=== PATIENT | female | born 1940 | race African-American/Black ===

== ENCOUNTER 2020-01-08 16:42 | Emergency (ER) | payer MEDICARE, OTHER ==
[~2020-01-08] VITALS: Ht 162.6 cm; Wt 62.0 kg
[~2020-01-08 16:42] MED LIST: UNK BP MED; XANAX
[2020-01-08] MEDS ORDERED: ARAV10 PO (16:53)
[2020-01-08] MEDS ORDERED: LOSA50TA3 PO (16:53)
[2020-01-08] MEDS ORDERED: METO-385 PO (16:53)
[2020-01-08] MEDS ORDERED: BACITRACIN ZINC OINT UDPKT TOP ONE (17:15)
[2020-01-08] MEDS ORDERED: TETANUS, DIPHTHERIA, PERTUSSIS VAC/PF 0.5ML (>7YR OLD) IM ONE (17:15)
[2020-01-08] MEDS ORDERED: IBUPROFEN 600MG TABLET PO ONE (17:15)
[2020-01-08] MEDS ORDERED: LIDOCAINE HCL/PF 1% 10 MG/ML 5ML VIAL IJ ONE (18:15)
[2020-01-08 18:43] VITALS: BP 155/92
== END 2020-01-08 18:45 | disposition home or self-care (01) ==
LOC: ER 16:42
DX: M25.551 Pain in right hip (principal); G89.11 Acute pain due to trauma; S60.511A Abrasion of right hand, initial encounter; I10 Essential (primary) hypertension; W01.0XXA Fall on same level from slipping, tripping and stumbling without subsequent striking against object, initial encounter; Y93.01 Activity, walking, marching and hiking; Y92.480 Sidewalk as the place of occurrence of the external cause; Z23 Encounter for immunization
CPT/HCPCS: 73502; 90471; 90715; 99283; J3490

== ENCOUNTER 2022-01-16 09:11 | Emergency (ER) | payer OTHER ==
[~2022-01-16] VITALS: Ht 167.6 cm; Wt 61.0 kg
[~2022-01-16 09:11] MED LIST changes: +ARAV10 PO; +LOSA50TA3 PO; +METO-385 PO; -UNK BP MED
[2022-01-16] MEDS ORDERED: KETOROLAC 60MG/2ML VIAL IM ONE (10:00)
[2022-01-16 10:56] LABS: BASOPHILS % 0.9 % (0.0-2.0); EOSINOPHILS % 1.8 % (0.0-5.0); HEMATOCRIT. 36.7 % (36.0-48.0); HEMOGLOBIN. 11.8 g/dL (12.0-16.0); LYMPHOCYTES % 20.8 % (20.0-50.0); MEAN CORPUSCULAR HEMOGLOBIN 23.4 pg (28.0-32.0); MEAN CORPUSCULAR VOLUME 73.1 fL (81.0-99.0); MONOCYTES % 12.2 % (2.0-8.0); NEUTROPHILS % 64.3 % (40.0-76.0); PLATELET 236 x1000/uL (130-400); RED BLOOD CELL COUNT 5.02 mill/uL (4.2-5.4); RED CELL DISTRIBUTION WIDTH 14.8 % (11.6-14.6)
[2022-01-16 10:58] LABS: CHLORIDE 110 mEq/L (98-107)
[2022-01-16] MEDS ORDERED: ACET-2708 MT (12:10)
[2022-01-16 13:40] VITALS: BP 155/18
== END 2022-01-16 13:44 | disposition home or self-care (01) ==
LOC: ER 09:11
DX: G62.9 Polyneuropathy, unspecified (principal); I10 Essential (primary) hypertension; M06.9 Rheumatoid arthritis, unspecified; Z87.891 Personal history of nicotine dependence
CPT/HCPCS: 36415; 72100; 80053; 85025; 96372; 99284; J1885